=== PATIENT | female | born 1985 ===

== ENCOUNTER 2023-09-03 14:44 | Outpatient (RCR) | payer OTHER, SELFPAY | END 2023-12-02 23:59 | disposition home or self-care (01) | LOC: ANHVASCINF 14:44 | PROVIDERS: Visit Provider Pediatrics | DX: Z20.3 Contact with and (suspected) exposure to rabies (principal); Z29.14 Encounter for prophylactic rabies immune globulin | CPT/HCPCS: 90471; 90675 ==